=== PATIENT | female | born 1990 | race Caucasian/White ===

== ENCOUNTER 2017-03-21 22:19 | Emergency (ER) | payer OTHER ==
[~2017-03-21] VITALS: Ht 160 cm; Wt 87.5 kg
[~2017-03-21 22:19] MED LIST: ATIVAN1 MG PO; DEPO-PROVER150 MG/M1 IM; DONNATAL PO; HYDROCODONE BIT1 T11 PO; MOTRIN600 MG PO; MOTRIN800 MG PO; NORFLEX100 MG PO; TESSALON PERLE200 MG PO; TORADOL10 MG PO; VICODIN 5/500 505 MG PO; VIORELE; VISTARIL25 M1 PO; ZANAFLEX2 M1 PO; ZITHROMAX Z PA250 MG PO; ZOFRAN ODT4 MG SL; [UNRECOGNIZED DRUG - REMARK]
[2017-03-21] MEDS ORDERED: ADDERALL XR10 MG PO (22:44)
[2017-03-21] MEDS ORDERED: MIRALAX POWDER255 G1 PO (22:45)
[2017-03-21 23:12] LABS: BILIRUBIN NEGATIVE (NEGATIVE); BLOOD NEGATIVE (NEGATIVE); CLARITY CLOUDY (CLEAR); COLOR YELLOW (YELLOW); GLUCOSE NEGATIVE (NEGATIVE); KETONE NEGATIVE (NEGATIVE); LEUKO ESTERASE NEGATIVE (NEGATIVE); NITRITE NEGATIVE (NEGATIVE); UROBILINOGEN 0.2 E.U./dl (0.2-1.0)
[2017-03-21 23:26] LABS: BACTERIA 4+; EPITHELIAL CELLS 16-20
[2017-03-21 23:55] LABS: BASO % 0.2 % (0.0-1.0); EOS # 0.2 10*3/uL (0.0-0.4); EOS % 2.6 % (1.0-4.0); HEMATOCRIT 36.9 % (37.0-47.0); HEMOGLOBIN 12.7 g/dl (12.0-16.0); LYMPH # 3.4 10*3/uL (1.3-4.4); LYMPH % 36.1 % (27.0-41.0); MEAN CELL VOLUME 86.6 fl (81.0-99.0); MEAN CORPUSCULAR HGB 29.8 pg (27.0-31.0); MEAN CORPUSCULAR HGB CONC 34.4 g/dl (33.0-37.0); MEAN PLATELET VOLUME 11.5 fl (9.6-12.3); MONO # 0.7 10*3/uL (0.1-1.0); MONO % 7.4 % (3.0-9.0); PLATELET COUNT AUTOMATED 227 10*3/uL (130-400); RED BLOOD COUNT 4.26 10*6/uL (4.10-5.10); RED CELL DISTRI WIDTH 12.7 % (0-14.5); WHITE BLOOD COUNT 9.4 10*3/uL (4.8-10.8)
[2017-03-22 00:06] LABS: ALBUMIN 3.6 gm/dl (3.1-4.5); ALKALINE PHOSPHATASE 76 U/L (45-117); BUN 12 mg/dl (7-24); CHLORIDE 106 mmol/L (98-107); CREATININE 0.82 mg/dL (0.55-1.02); LIPASE 220 U/L (73-393); POTASSIUM 3.6 mmol/L (3.5-5.1); SGOT/AST 16 IU/L (3-35); SGPT/ALT 24 U/L (12-78); SODIUM 140 mmol/L (136-145); TOTAL PROTEIN 7.5 gm/dL (6.4-8.2)
[2017-03-22] MEDS ORDERED: ZOFRAN ODT4 MG SL (01:17)
[2017-03-22 01:21] VITALS: BP 126/68
== END 2017-03-22 01:51 | disposition home or self-care (01) ==
LOC: ED 22:19
PROVIDERS: Nurse Practitioner Family
DX: K59.00 Constipation, unspecified (principal); Z91.041 Radiographic dye allergy status; Z91.013 Allergy to seafood; Z88.5 Allergy status to narcotic agent; Z79.899 Other long term (current) drug therapy

== ENCOUNTER → 2017-06-19 | Outpatient (CLI) | payer OTHER ==
[~2017-06-19] MED LIST changes: +ADDERALL XR10 MG PO; +MIRALAX POWDER255 G1 PO
== END | disposition home or self-care (01) ==
LOC: US 15:49
DX: Z34.81 Encounter for supervision of other normal pregnancy, first trimester (principal); Z3A.01 Less than 8 weeks gestation of pregnancy

== ENCOUNTER → 2017-07-02 | Outpatient (CLI) | payer OTHER | LOC: US 12:30 | DX: Z34.91 Encounter for supervision of normal pregnancy, unspecified, first trimester (principal); Z3A.01 Less than 8 weeks gestation of pregnancy ==

== ENCOUNTER → 2017-08-05 | Outpatient (CLI) | payer OTHER | END | disposition home or self-care (01) | LOC: US 16:00 | DX: Z34.81 Encounter for supervision of other normal pregnancy, first trimester (principal); Z3A.11 11 weeks gestation of pregnancy ==

== ENCOUNTER 2018-12-30 14:49 | Emergency (ER) | payer OTHER ==
[~2018-12-30] VITALS: Ht 162.5 cm; Wt 88.0 kg
[~2018-12-30 14:49] MED LIST changes: +AUGMENTIN 875875 MG PO; +MORPHINE SULFAT10 M3 PO
[2018-12-30 14:51] VITALS: BP 120/99
[2018-12-30 15:31] LABS: BASO % 0.3 % (0.0-1.0); EOS # 0.2 10*3/uL (0.0-0.4); HEMOGLOBIN 13.5 g/dl (12.0-16.0); LYMPH # 2.5 10*3/uL (1.3-4.4); LYMPH % 33.9 % (27.0-41.0); MEAN CELL VOLUME 87.8 fl (81.0-99.0); MEAN CORPUSCULAR HGB 28.9 pg (27.0-31.0); MEAN CORPUSCULAR HGB CONC 32.9 g/dl (33.0-37.0); MEAN PLATELET VOLUME 11.7 fl (9.6-12.3); MONO # 0.5 10*3/uL (0.1-1.0); MONO % 6.7 % (3.0-9.0); NEUT # 4.3 10*3/uL (2.3-7.9); NEUT % 56.8 % (47.0-73.0); PLATELET COUNT AUTOMATED 242 10*3/uL (130-400); RED BLOOD COUNT 4.67 10*6/uL (4.10-5.10); RED CELL DISTRI WIDTH 13.7 % (0-14.5); WHITE BLOOD COUNT 7.5 10*3/uL (4.8-10.8)
[2018-12-30 15:49] LABS: ALBUMIN 3.7 gm/dl (3.1-4.5); ALKALINE PHOSPHATASE 71 U/L (45-117); BUN 11 mg/dl (7-24); CHLORIDE 108 mmol/L (98-107); CREATININE 0.81 mg/dL (0.55-1.02); POTASSIUM 3.6 mmol/L (3.5-5.1); SGOT/AST 14 IU/L (3-35); SGPT/ALT 28 U/L (12-78); SODIUM 139 mmol/L (136-145)
[2018-12-30 15:51] LABS: BETA-HCG, QUANT < 1.0 mIU/mL (1-3)
[2018-12-30 16:21] LABS: BILIRUBIN NEGATIVE (NEGATIVE); BLOOD 2+ (NEGATIVE); CLARITY CLEAR (CLEAR); COLOR YELLOW (YELLOW); GLUCOSE NEGATIVE (NEGATIVE); KETONE NEGATIVE (NEGATIVE); LEUKO ESTERASE NEGATIVE (NEGATIVE); NITRITE NEGATIVE (NEGATIVE); SPECIFIC GRAVITY <= 1.005 (1.005-1.030); UROBILINOGEN 0.2 E.U./dl (0.2-1.0)
[2018-12-30 16:42] LABS: BACTERIA 1+
[2018-12-30] MEDS ORDERED: SEPTDS PO (18:01)
== END 2018-12-30 18:05 | disposition home or self-care (01) ==
LOC: ED 14:49
PROVIDERS: Nurse Practitioner Family
DX: N12 Tubulo-interstitial nephritis, not specified as acute or chronic (principal); Z91.041 Radiographic dye allergy status; Z91.013 Allergy to seafood; Z88.6 Allergy status to analgesic agent; Z79.899 Other long term (current) drug therapy; Z90.49 Acquired absence of other specified parts of digestive tract

== ENCOUNTER → 2019-08-23 | Outpatient (CLI) | payer OTHER ==
[~2019-08-23] MED LIST changes: +SEPTDS PO
== END | disposition home or self-care (01) ==
LOC: COVID19 01:02
DX: R50.9 Fever, unspecified (principal); Z20.828 Contact with and (suspected) exposure to other viral communicable diseases